=== PATIENT | female | born 2000 | race Two or more races ===

== ENCOUNTER 2024-07-15 03:05 | Emergency (ER) | payer MEDICAID, MEDICARE ==
[~2024-07-15] VITALS: Ht 157.5 cm; Wt 89.0 kg
[2024-07-15 03:19] VITALS: O2SAT 100
[2024-07-15 04:07] LABS: BASOPHILS % 0.5 % (0.0-2.0); EOSINOPHILS % 0.3 % (0.0-5.0); HEMATOCRIT. 39.6 % (36.0-48.0); HEMOGLOBIN. 13.5 g/dL (12.0-16.0); MEAN CORPUSCULAR HEMOGLOBIN 31.9 pg (28.0-32.0); MEAN CORPUSCULAR HGB CONC 34.2 g/dL (31.0-37.0); MEAN CORPUSCULAR VOLUME 93.2 fL (81.0-99.0); MONOCYTES % 7.5 % (2.0-8.0); NEUTROPHILS % 66.7 % (40.0-76.0); PLATELET 284 x1000/uL (130-400); RED BLOOD CELL COUNT 4.25 mill/uL (4.2-5.4); RED CELL DISTRIBUTION WIDTH 12.6 % (11.6-14.6); WHITE BLOOD COUNT 11.7 x1000/uL (4.5-11.0)
[2024-07-15 04:09] VITALS: TEMP 97.9
[2024-07-15] MEDS: ACETAMINOPHEN 325MG TABLET PO ONE (04:09)
[2024-07-15 04:11] LABS: CHLORIDE 109 mEq/L (98-107); POTASSIUM 4.2 mEq/L (3.5-5.1); SODIUM 138 mEq/L (136-145)
[2024-07-15 04:12] LABS: CALCIUM 9.6 mg/dL (8.7-10.4); CARBON DIOXIDE 24 mEq/L (21-32)
[2024-07-15 04:17] LABS: CREATININE 0.7 mg/dL (0.6-1.0); GLUCOSE 98 mg/dL (70-105); UREA NITROGEN BLOOD 14 mg/dL (9-23)
[2024-07-15 04:25] LABS: B-HCG QUANTITATIVE > 1000 mIU/mL (<3)
[2024-07-15] MEDS ORDERED: IBUP-2028 MT (05:28)
[2024-07-15 05:45] VITALS: BP 132/74; PULSE 85; RESP 18; O2SAT 100
== END 2024-07-15 05:48 | disposition home or self-care (01) ==
LOC: ER 03:05
DX: O99.891 Other specified diseases and conditions complicating pregnancy (principal); O9A.211 Injury, poisoning and certain other consequences of external causes complicating pregnancy, first trimester; S39.012A Strain of muscle, fascia and tendon of lower back, initial encounter; S16.1XXA Strain of muscle, fascia and tendon at neck level, initial encounter; X58.XXXA Exposure to other specified factors, initial encounter; Z3A.11 11 weeks gestation of pregnancy; Y93.89 Activity, other specified; Y92.89 Other specified places as the place of occurrence of the external cause; Y99.8 Other external cause status
CPT/HCPCS: 36415; 71045; 76801; 80048; 84702; 85025; 99284